=== PATIENT | male | born 1975 | race Caucasian/White ===

== ENCOUNTER 2017-08-24 00:20 | Emergency (ER) | payer SELFPAY ==
--- NOTE | 2017-08-24 01:29 | EDM.PDOC ---
ED HPI GENERAL MEDICAL PROBLEM - General Chief Complaint: Lower Extremity Injury/Pain Stated Complaint: RIGHT FOOT PAIN Time Seen by Provider: 08/24/17 01:19 - History of Present Illness INITIAL COMMENTS - FREE TEXT/NARRATIVE: HISTORY AND PHYSICAL: History of present illness: The patient is a 42-year-old male who presents with a coworker after a large piece of height fell onto his right foot approximately 3-4 hours ago. The patient was at work when this occurred and he had no other injuries and complains only of right mid foot pain. The patient took 800 mg of ibuprofen before coming here. Patient has no neurosensory changes in his foot and has no proximal heel ankle leg or knee pain. Patient says his toes do not hurt just the midfoot. Patient states he just wants to get it checked out so he can get back to work. Review of systems: As per history of present illness and below otherwise all systems reviewed and negative. Past medical history: As per history of present illness and as reviewed below otherwise noncontributory. Surgical history: As per history of present illness and as reviewed below otherwise noncontributory. Social history: No reported history of drug or alcohol abuse. Family history: As per history of present illness and as reviewed below otherwise noncontributory. Physical exam: HEENT: Atraumatic, normocephalic, negative for conjunctival pallor or scleral icterus, mucous membranes moist, throat clear, neck supple, nontender, trachea midline. Lungs: Clear to auscultation, breath sounds equal bilaterally, chest nontender. Heart: S1S2, regular rate and rhythm no overt murmurs Abdomen: Soft, nondistended, nontender. NABS Pelvis: Stable nontender. Genitourinary: Deferred. Rectal: Deferred. Extremities: Atraumatic appearing throughout including the right foot. There is mild tenderness at palpation of the dorsal aspect of the midfoot without any ecchymosis erythema warmth or palpable bony deformities and there is no crepitus. There is no distal toe pain swelling or defects and no proximal heel ankle leg or knee pain/deformities or discomfort with palpation. The legs are, negative for cords or calf pain. Neurovascular unremarkable. Neuro: Awake, alert, oriented. Cranial nerves II through XII unremarkable. Cerebellum unremarkable. Motor and sensory unremarkable throughout. Exam nonfocal. Diagnostics: X-ray right foot Therapeutics: Impression: Right foot contusion status post blunt trauma Definitive disposition and diagnosis as appropriate pending reevaluation and review of above. right foot Pain Score (Numeric/FACES): 7 - Related Data Allergies Allergy/AdvReac Type Severity Reaction Status Date / Time diphenhydramine Allergy Anxiety Verified 08/24/17 01:21 [From Benadryl] Home Meds: Home Meds oxyCODONE HCl/Acetaminophen [Percocet 10-325 mg Tablet] 1 each PO TID PRN [History] Review of Systems - Review of Systems Review Of Systems: ROS reveals no pertinent complaints other than HPI. ED EXAM, GENERAL - Physical Exam Exam: See Below (See dictation) Course - Vital Signs Last Recorded V/S: Last Vital Signs Temp 36.5 C 08/24/17 01:22 Pulse 87 08/24/17 01:22 Resp 18 08/24/17 01:22 BP 156/84 H 08/24/17 01:22 Pulse Ox 95 08/24/17 01:22 - Orders/Labs/Meds Orders: Active Orders 24 hr Category Date Time Status Foot Comp Min 3V Rt [CR] Stat Exams 08/24/17 01:26 Taken Departure - Departure Time of Disposition: 02:01 Disposition: Home, Self-Care 01 Condition: Good Clinical Impression: Contusion of right foot Qualifiers: Encounter type: initial encounter Qualified Code(s): S90.31XA - Contusion of right foot, initial encounter - Discharge Information Referrals: PCP,None [Primary Care Provider] - Forms: ED Department Discharge Additional Instructions: The following information is given to patients seen in the emergency department who are being discharged to home. This information is to outline your options for follow-up care. We provide all patients seen in our emergency department with a follow-up referral. The need for follow-up, as well as the timing and circumstances, are variable depending upon the specifics of your emergency department visit. If you don't have a primary care physician on staff, we will provide you with a referral. We always advise you to contact your personal physician following an emergency department visit to inform them of the circumstance of the visit and for follow-up with them and/or the need for any referrals to a consulting specialist. The emergency department will also refer you to a specialist when appropriate. This referral assures that you have the opportunity for followup care with a specialist. All of these measure are taken in an effort to provide you with optimal care, which includes your followup. Under all circumstances we always encourage you to contact your private physician who remains a resource for coordinating your care. When calling for followup care, please make the office aware that this follow-up is from your recent emergency room visit. If for any reason you are refused follow-up, please contact the [facility] emergency department at and ask to speak to the emergency department charge nurse. [facility] Podiatry [address] [place] [id number] Fax: [phone] Dr Moe Higuera [address] [place] [id number] Ice and elevate the area as much as possible and use [id number] ibuprofen or Tylenol for pain. Please contact one of our podiatrists/pathology specialist for further care and evaluation this week and return to ER as needed and as discussed. - My Orders Last 24 Hours: My Active Orders 08/24/17 01:26 Foot Comp Min 3V Rt [CR] Stat - Assessment/Plan Last 24 Hours: My Active Orders 08/24/17 01:26 Foot Comp Min 3V Rt [CR] Stat
--- NOTE | 2017-08-25 19:05 | CR ---
EXAM DATE: 08/24/17 PATIENT'S AGE: 42 Patient: ESTEFANY BROOKE Facility: [place], [place] Site . Site : [id number] Study: XRay Extremity Right [id number]/14/2018 1:46:08 AM Ordering Physician: Aditi Delgado Final Report: INDICATION: Pipe fell on foot TECHNIQUE: Foot radiograph 3 views right COMPARISON: None FINDINGS: Bones: No acute fractures or aggressive bone lesions are identified. Joints: A small corticated ossicle is seen along the lateral aspect of the 1st interphalangeal joint. No significant ankle effusion is seen. Soft tissue: Unremarkable. No radiopaque foreign bodies are seen. IMPRESSION: 1. No acute osseous injuries or abnormalities are noted. Dictated by Andriy Jolley MD @ 08/24/2017 1:51:26 AM Dictated by: Andriy Jolley MD @ 08/24/2017 01:51:30 (Electronic Signature) Report Signed by Proxy. MANUEL
== END 2017-08-24 02:30 | disposition home or self-care (01) ==
LOC: MW.ED 00:20
DX: S90.31XA Contusion of right foot, initial encounter (principal); Z88.8 Allergy status to other drugs, medicaments and biological substances; W20.8XXA Other cause of strike by thrown, projected or falling object, initial encounter; Y99.0 Civilian activity done for income or pay
CPT/HCPCS: 73630-26-RT; 73630-RT; 99283